=== PATIENT | female | born 1965 | race Native Hawaiian/Other Pacific Islander ===

== ENCOUNTER 2024-10-17 09:57 | Outpatient (AMB) | payer OTHER, SELFPAY ==
[2024-10-17 10:13] VITALS: BP 112/78; PULSE 70; O2SAT 98; BMI 36.8
--- NOTE | 2024-10-17 10:13 | A.OFFVIS_ITS ---
Vital Signs 10/17/24 10:13 Height 5 ft Weight 188 lb 7.924 oz BMI 36.8 BP 112/78 Blood Pressure Location Lt brachial Position Sitting Pulse 70 Pulse Source Pulse Oximeter Pulse Oximetry (%) 98 Oxygen Delivery Method Room Air Intake Visit Reasons: amdyson Intake Note: pt is coming here as a new patient for sleep apnea. all sleep studies were done years ago,and she has trouble with anything on her face.She does have daytime fatigue, breathing is poor when sleeping. She does sleep with her mouth open. breathing is stable Mica Washer Gluer Required: No Allergies Penicillins Allergy (Severe, Verified 10/17/24 10:30) Rash tramadol Allergy (Severe, Verified 10/17/24 10:30) rash Medication List - Last Reconciled 10/17/24 by Irais Enamorado MD albuterol sulfate 90 mcg/actuation 2 puffs inhalation Q6H PRN amlodipine 5 mg PO DAILY benzonatate 200 mg PO BID PRN fluticasone propion-salmeterol 115-21 mcg/actuation (Advair HFA) 2 puffs inhalation BID galcanezumab-gnlm (Emgality) mg subcut hydrochlorothiazide 25 mg PO DAILY omeprazole 20 mg PO DAILY ubrogepant (Ubrelvy) 100 mg PO ONCE Do you need a note to return to daycare/school/sports/work: No HPI HPI madyson: Details: THIS 59 YEARS OLD FEMALE IS BEING SEEN FOR THE 1ST TIME, FOR HER HISTORY OF SLEEP APNEA AND ALSO DIFFICULTY IN SLEEP AT NIGHT. HER SYMPTOMS DATE BACK TO A FEW YEARS BEFORE 2017. SHE HAD DIFFICULTY IN FALLING ASLEEP AND THEN FREQUENT AWAKENING DURING THE SLEEP TIME, RESULTING IN EXCESSIVE DAYTIME SLEEPINESS. UNDERWENT SLEEP STUDY IN 2018 WHICH CONFIRMED THE DIAGNOSIS OF OBSTRUCTIVE SLEEP APNEA. SHE WAS STARTED ON CPAP THERAPY WITH NASAL PILLOWS. SHE HAS HISTORY OF CLAUSTROPHOBIA AND COULD NOT USE FULLFACE MASK. SHE WAS UNABLE TO USE EVEN THE NASAL PILLOWS, AND AFTER TRYING FOR A MONTH OR SO SHE ACTUALLY GAVE UP, USING CPAP. SHE CONTINUES TO HAVE POOR SLEEP AT NIGHT WITH FREQUENT AWAKENINGS. AND AFTER 1 OR 2 AWAKENINGS SHE CAN NOT GO BACK. TO SLEEP SHE COMPLAINS OF BEING TIRED AND SLEEPY DURING THE DAYTIME . SHE DOES SNORE WHEN SLEEPING . IN 2019 SHE HAD COVID INFECTION, FROM WHICH SHE RECOVERED QUICKLY, BUT A FEW MONTHS LATER SHE WAS TREATED FOR PNEUMONIA. AT THAT TIME SHE NEEDED TO USE O2, SHE WAS TREATED AT HOME , ADVISED TO USE HER CPAP DURING THE DAYTIME ALONG WITH OXYGEN. DURING THE DAYTIME SHE WAS ABLE TO USE THE CPAP WITH NASAL PILLOWS. BUT AT NIGHTTIME SHE CAN NOT USE THE CPAP. SHE HAD RECOVERED FROM PNEUMONIA AND RESPIRATORY INSUFFICIENCY WITHIN A FEW MONTHS. AT THAT TIME SHE WAS TREATED WITH ADVAIR HFA AND ALBUTEROL P.R.N., AFTER SHE RECOVERED SHE HAS NEEDED TO USE ALBUTEROL ONLY ONCE IN A WHILE. SHE COMES TODAY, FOR RE-EVALUATION., HAS SHE CONTINUES TO HAVE DIFFICULT TIME IN SLEEPING AT NIGHT AND IS TIRED AND SLEEPY DURING THE DAYTIME. HER WEIGHT HAS REMAINED UNCHANGED AND SHE HAS NOT BEEN ABLE TO LOSE MUCH WEIGHT/ SHE SUFFERS FROM MIGRAINE SYNDROME AND IT IS BEING CONTROLLED WITH EMGALITY INJECTION ONCE A MONTH AND Ubrelvy tabs PRN at the onset of migraine attack. [facility] Medical History (Updated 10/17/24 @ 13:45 by Irais Enamorado MD) Snoring History of claustrophobia COPD (chronic obstructive pulmonary disease) Somnolence MADYSON (obstructive sleep apnea) Obesity (BMI 30-39.9) Social History (Updated 10/17/24 @ 10:27 by Nini Alvares [facility]) Patient Tobacco Use Status: Never used Tobacco Review of Systems Const All systems reviewed & are unremarkable except as noted in HPI and below Reports snoring Eyes Reports no additional complaints ENT Reports nasal congestion (MILD OFF AND ON) Card Denies chest pain, Denies syncope, Denies irregular heart rhythm, Denies leg edema and Reports dyspnea on exertion (MILD) Resp Reports as per HPI, Reports dyspnea on exertion (MILD) and Reports snoring GI Details: MODERATELY EXCESSIVE WHEN SLEEPING Reports no additional complaints Skin/Breast Reports system reviewed and no additional complaints, except as documented Neuro Denies syncope and Reports other (MIGRAINE SYNDROME) Psych Reports no additional complaints Endo Reports no additional complaints Ramón/Lymph Reports no additional complaints Physical Exam Vital Signs: Last Vital Signs Pulse 70 10/17/24 10:13 BP 112/78 10/17/24 10:13 Pulse Ox 98 10/17/24 10:13 Oxygen Delivery Method Room Air 10/17/24 10:13 BMI result Body Mass Index 36.8 GROSSLY OBESE, ROUND FACE. SHORT NECK 15-1/2 INCH. Const General: healthy appearing (EXCEPT FOR BEING OBESE), comfortable, no acute distress, alert and awake Orientation/consciousness: patient oriented x3 HEENT Head: Yes normal to inspection General nose exam: No nasal polyps present and No nasal discharge present Face and sinus: Yes sinuses nontender Mouth: oropharynx abnormals (NARROW AND CROWDED OROPHARYNX WITH MALLAMPATI CLASS 3) Throat: Yes posterior oropharynx normal Eyes General: appearance normal, both eyes and all related structures Neck Neck: Yes normal visual inspection, Yes no lymphadenopathy, Yes trachea midline, Yes no JVD and Yes other (NECK CIRCUMFERENCE 15-1/2 INCH) Thyroid: Thyroid normal Chest Chest palpation & inspection: normal inspection of the chest, normal palpation of entire chest wall and no tenderness Resp Effort & Inspection: normal respiratory effort and prolonged expiratory phase Auscultation: clear to auscultation bilaterally, no crackles, no wheezes and diminished lung sounds (BREATH SOUNDS ARE MODERATELY DISTANT) Cardio Palpation: normal PMI Rate: regular rate Rhythm: regular rhythm Heart sounds: no gallops and no murmurs Peripheral pulses: Peripheral pulses 2+ throughout GI Palpation (GI): Soft to palpation, Tenderness to palpation present (GI), No hepatosplenomegaly present and Palpable mass present Auscultation: normal bowel sounds Back/Spine/Pelvis Thoracic/Lumbar Spine: thoracic and lumbar spine normal to inspection Skin General skin exam: no rashes or lesions noted Neuro General: patient oriented x3 and no focal motor deficits Cranial nerves: Yes CN's II-XII intact bilaterally Extrem General: Yes normal to inspection, Yes no clubbing, cyanosis or edema and Yes no calf tenderness Psych Speech and movement: Normal speech and movement present Assessment & Plan Assessment & Plan (1) Obesity (BMI 30-39.9): Comment: PATIENT IS GROSSLY OBESE, ASSOCIATED WITH OBSTRUCTIVE SLEEP APNEA ,WEIGHT HAS BEEN UNCHANGED. Code(s): E66.9 - Obesity, unspecified Category: Medical Plan: DISCUSSED WITH HER ABOUT THE WEIGHT, SHE NEEDS TO WATCH HER DIET AND START WALKING DAILY. (2) MADYSON (obstructive sleep apnea): Comment: SHE HAS HISTORY OF CONFIRMED DIAGNOSIS OF OBSTRUCTIVE SLEEP APNEA, SINCE 2018. SHE WAS NOT ABLE TO USE THE CPAP DUE TO CLAUSTROPHOBIA. BUT WHEN SHE HAD PNEUMONIA WITH RESPIRATORY INSUFFICIENCY, CAUSE BY COVID INFECTION SHE WAS ABLE TO USE CPAP DURING THE DAYTIME WHILE AWAKE. BECAUSE SHE IS HAVING VERY POOR SLEEP SHE WANTS TO TRY USING THE CPAP AGAIN. Code(s): G47.33 - Obstructive sleep apnea (adult) (pediatric) Category: Medical Plan: WILL NEED TO RECONFIRM THE DIAGNOSIS BY A REPEAT SLEEP STUDY. SHE IS AGREEABLE. SO I HAVE PUT ORDER FOR A HOME-BASED SLEEP STUDY. (3) Somnolence: Comment: SHE HAS VERY POOR SLEEP AT NIGHT PARTLY BECAUSE OF SLEEP APNEA AND PARTLY DUE TO HER UNDERLYING MENTAL HEALTH ISSUES. Code(s): R40.0 - Somnolence Category: Medical Plan: I THINK THIS WILL IMPROVE AFTER SHE STARTS USING THE CPAP REGULARLY (4) COPD (chronic obstructive pulmonary disease): Comment: SHE HAS CHRONIC OBSTRUCTIVE PULMONARY DISEASE DIAGNOSED SINCE SHE SUFFERED FROM COVID INFECTION . Code(s): J44.9 - Chronic obstructive pulmonary disease, unspecified Category: Medical Plan: CONTINUE USING ADVAIR HFA 115-212 PUFFS B.I.D. AND USE ALBUTEROL 2 PUFFS Q 6 HOURS P.R.N. WE WILL NEED TO DO A COMPLETE PULMONARY FUNCTION TEST TO SEE HOW SEVERE HER COPD IS. . THIS WILL BE UNDERTAKEN AFTER HER NEXT VISIT (5) History of claustrophobia: Comment: PATIENT COULD NOT USE THE CPAP AFTER HER SLEEP STUDY IN 2018, BECAUSE SHE HAS CLAUSTROPHOBIA AND COULD NOT EVEN USE THE NASAL MASK. BUT WHEN SHE SUFFERED FROM COVID INFECTION AND RESPIRATORY INSUFFICIENCY SHE DID USE THE CPAP DURING DAYTIME AND IT WAS OKAY. Code(s): Z86.59 - Personal history of other mental and behavioral disorders Category: Medical Plan: AFTER THE SLEEP STUDY IF SHE IS FOUND TO HAVE SLEEP APNEA AND NEEDS USE OF CPAP, SHE WILL NEED TO TRAIN HERSELF TO START USING THE CPAP. I WILL RECOMMEND THAT INITIALLY SHE COULD TRY TO USE CPAP EVEN DURING THE DA YTIME WHEN SHE IS AWAKE, SO THAT SHE. CAN GET USED TO IT Orders: Orders RT home sleep study Today E66.9 - Obesity, unspecified, G47.33 - Obstructive sleep apnea (adult) (pediatric), R06.83 - Snoring, R40.0 - Somnolence Coding Level of Care Code New Pt Level 4 (77505) Diagnoses Obesity (BMI 30-39.9) E66.9 MADYSON (obstructive sleep apnea) G47.33 Somnolence R40.0 COPD (chronic obstructive pulmonary disease) J44.9 History of claustrophobia Z86.59
--- OUTSIDE RECORDS SUMMARY | 2024-10-17 11:05 | XMS_ITS | Clinical Summary ---
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 Active triamcinolone (KENALOG) 0.1 % ointment Apply a thin layer to the affected area nightly x4 weeks 3 Active cetirizine (ZyrTEC) 10 mg tablet 1 Active ketotifen (ZADITOR) 0.025 % ophthalmic solution 1 Active fluticasone propionate (FLONASE) 50 mcg/actuation nasal spray 1-2 sprays in each nostril daily as needed 9 Active busPIRone (BUSPAR) 5 mg tablet Take 1 Tablet by mouth 3 times daily as needed (Anxiety). 4 Active sodium chloride (AYR) 0.65 % nasal drops 1 [place] by Nasal route 3 times daily as needed for Congestion. 4 Active galcanezumab-gnl m (Emgality Pen) 120 mg/mL injection pen Inject 1 mL (120 mg total) under the skin every 28 (twenty-eight) days. 1 each 5 4 Active omeprazole (PriLOSEC) [address] capsule TAKE 1 CAPSULE BY MOUTH 2 TIMES DAILY (BEFORE MEALS) 180 capsule 1 5 Active albuterol HFA (PROAIR HFA ; PROVENTIL HFA ; VENTOLIN HFA) 90 mcg/actuation inhaler Inhale 2 puffs by mouth every 4 (four) hours if needed for wheezing. 6.7 g 3 5 Active amLODIPine (NORVASC) 5 mg tablet TAKE 1 TABLET BY MOUTH EVERY DAY 90 tablet 1 5 Active hydroCHLOROthiaz felix (HYDRODIURIL) 25 mg tablet Take 1 tablet (25 mg total) by mouth 1 (one) time each day. 90 tablet 1 5 Active meclizine (ANTIVERT) 12.5 mg tablet Take 1 tablet (12.5 mg total) by mouth 3 (three) times a day if needed for dizziness. 60 tablet 1 5 Active potassium chloride (KLOR-CON M10) 10 mEq CR tablet Take 1 tablet (10 mEq total) by mouth 1 (one) time each day. Tablet may be swallowed whole (do not crush/chew/suck on) OR broken in half and each half swallowed separately OR dissolved (whole tablet) in ~4 ounces of water (allow ~2 minutes to dissolve, stir well and administer immediately). 90 each 1 5 Active Ubrelvy 100 mg tabletIndication s:Chronic migraine with aura without status migrainosus, not intractable 1 p.o. at onset of migraine. May repeat once after 2 hours. Maximum dose: 200 mg/24 hrs 9 tablet 2 5 Active Hospital, Clinic, or Other Facility Administered Medication Ordered Dose Route Frequency Start Date End Date Status onabotulinumtoxinA (BOTOX) 200 unit injection 200 UnitsIndications:Chronic migraine with aura without status migrainosus, not intractable 200 Units IM Once 10/04/2024 10/04/2024 Ended Active Problems Problem Noted Date Diagnosed Date Mild intermittent asthma without complication Mixed hyperlipidemia 06/21/2023 Pelvic pain 02/09/2023 Overview (03/24/2024): Last Assessment & Plan: Discussed potential causes of pelvic pain with the patient including infections (unlikely given abstinent and no other symptoms of infection), ovarian cysts, interstitial cystitis, irritable bowel, and MSK etiologies. Pelvic US ordered Vulvar lesion 02/09/2023 Overview (03/24/2024): Last Assessment & Plan: Rx kenolog refilled, patient instructed to apply a thin layer twice daily. RTO for biopsy. Procedure described and all questions answered. Prediabetes 02/06/2022 Overview (03/24/2024): A1c 5.8 (01/2022) Impaired fasting blood sugar 11/14/2021 Elevated blood pressure reading 2021 Overview (03/24/2024): Last Assessment & Plan: Blood pressure elevated x2 today. Patient was instructed to follow-up with primary care physician. Hot flashes due to menopause 2021 Overview (03/24/2024): Last Assessment & Plan: Briefly discussed alternative treatment options for menopausal hot flashes, however as patient's symptoms are mild at this time the decision was made to proceed with expectant management. Lichen simplex chronicus 2021 Overview (03/24/2024): Last Assessment & Plan: Patient's symptoms have resolved. She declines exam today. Will return if symptoms recur. COVID-19 06/24/2020 Microscopic hematuria 08/11/2019 Overview (03/24/2024): Per patient: in the past was told had blood in her urine, doesn't see any blood herself. She was referred to urology and seen by them by them over 5 years ago and was told everything was fine. Nodule of left lung 02/28/2019 Essential (primary) hypertension 10/05/2017 Vitamin D deficiency 06/15/2017 Low back pain 05/11/2017 Anxiety and depression 04/06/2017 Hypercholesterolemia 04/06/2017 Allergic rhinitis 10/15/2016 Migraine without status migrainosus, not intract able 10/15/2016 Acne 07/30/2015 Insomnia 08/14/2014 Esophageal reflux 06/07/2013 MADYSON on CPAP 11/02/2011 Overview (03/24/2024): [facility] Polysomnogram: Date 07/26/2019; Wt 174#; BMI 33; SE 88%; SM 89%; REM 22%; RDI 16 (AHI 10), REM (RDI 27 - AHI 23), Central apneas 4; Obstructive apneas 9; Mixed apneas 0; hypopneas 61; RERAs 46; average oxygen saturation 96% (lowest 86% - without saturations <88% for 5% or more of study); PLMs 3. Prestudy ESS 2; 0/4 RLS symptoms. - Obstructive Sleep Apnea - Mild overall and moderate in REM; mostly hypopneas; without sleep related hypoventilation by 2019 polysomnogram. Encounters Date Type Department Care Team Description 10/04/2024 10:00 AM EDT Procedure visit [facility] [place] [address] [place] [phone] Shena Willis MD Chronic migraine with aura without status migrainosus, not intractable (Primary Dx) 10/03/2024 10:00 AM EDT Evaluation [facility] [place] [address] [place] [phone] Ashok Lazo, PT Benign paroxysmal positional vertigo, unspecified laterality 09/19/2024 10:00 AM EDT - 09/19/2024 11:59 PM EDT Hospital Encounter Radiology Department - [address] [phone] Benign paroxysmal positional vertigo, unspecified laterality; Dizziness; Migraine without aura and without status migrainosus, not intractable Discharge Disposition: Home or Self Care 09/04/2024 10:30 AM EDT Lab Draw Station - [address] [place] [address] Essential (primary) hypertension; Mixed hyperlipidemia; Prediabetes; Gastroesophageal reflux disease without esophagitis; Mild intermittent asthma without complication; Migraine without aura and without status migrainosus, not intractable; MADYSON on CPAP; Allergic rhinitis, unspecified seasonality, unspecified trigger; Hypokalemia 09/04/2024 9:30 AM EDT Office Visit Adult Medicine [address] [phone] Alcides King MD Benign paroxysmal positional vertigo, unspecified laterality (Primary Dx); Dizziness; Allergic rhinitis, unspecified seasonality, unspecified trigger; Migraine without aura and without status migrainosus, not intractable; Hypokalemia; Essential (primary) hypertension 09/01/2024 Telephone Adult Medicine [address] [phone] Alcides King MD Dizziness 08/30/2024 Telephone Adult [address] [phone] Alcides King MD Dizziness 07/28/2024 8:30 AM EST Office Visit Adult [address] [phone] Alcides King MD Essential (primary) hypertension (Primary Dx); Mixed hyperlipidemia; Prediabetes; Gastroesophageal reflux disease without esophagitis; Mild intermittent asthma without complication; MADYSON on CPAP; Allergic rhinitis, unspecified seasonality, unspecified trigger; Migraine without aura and without status migrainosus, not intractable from Last 3 Months Immunizations Name Administration Dates Next Due Hepatitis B Pediatric (Enger ix B; Recombivax HB) to less than 20 yo 03/17/2010,01/30/2010,12/17/2009 Influenza Quadravalent, MDCK , 0.5ml, preservative free (Flucelvax) 6mo and older 03/14/2021,05/08/2019,06/28/2018 Influenza trivalent, 0.5mL, preservative free (Fluarix; FluLaval; Fluzone) ages 6mo and older (Afluria) 3 years and older 02/24/2016,03/18/2015,06/06/2012,2010,03/17/2010 Influenza trivalent, with preservative (Fluzone; Afluria) 6mo and older 04/06/2017,06/15/2013 Influenza, Unspecified 03/14/2021 [employer] SARS-CoV-2 COVID -19, vector-nr, rS-Ad26, preservative free 09/05/2020 MMR, measles mumps and rubel la Live (Priorix; M-M-R II) 12mo and older 06/15/2013 [employer] SARS-CoV-2 COVID-19, mRNA, LNP-S, preservative free 05/29/2021 Tdap Tetanus diptheria acell ular pertussis (Boostrix; Adacel) 7yo and older 11/14/2021,10/01/2011 Zoster recombinant (Shingrix ) 19yo and older 07/29/2022,05/25/2022 Surgical History Surgery Date Site/Laterality Comments ENDOMETRIAL ABLATION PROCEDURE: MA ENDOMETRIAL ABLTJ THERMAL W/O HYSTEROSCOPIC GUID; COMMENT: Early 40s TUBAL LIGATION PROCEDURE: HISTORICAL TUBAL LIGATION OTHER SURGICAL HISTORY Left PROCEDURE: ---- OTHER ----; COMMENT: removal of extra breast CYST REMOVAL PROCEDURE: MA EXCISION PILONIDAL CYST/SINUS SIMPLE BREAST SURGERY 1982 Left PROCEDURE: MA UNLISTED PROCEDURE BREAST; COMMENT: extra nipple removed lt breast age 16 Medical History Medical History Date Comments Acne 07/30/2015 DX:Acne Allergic rhinitis 10/15/2016 DX:Allergic rh initis Depression with anxiety 04/06/2017 DX:Depre ssion with anxiety Esophageal reflux 06/07/2013 DX:Esophageal reflux Migraine 10/15/2016 DX:Migraine Hypercholesterolemia 04/06/2017 DX:Hypercho lesterolemia Hypertension 10/05/2017 DX:Hypertension Insomnia 08/14/2014 DX:Insomnia Low back pain 05/11/2017 DX:Low back pain Obstructive sleep apnea 11/02/2011 DX:Obstr uctive sleep apnea Vitamin D deficiency 06/15/2017 DX:Vitamin D deficiency Prediabetes 02/06/2022 DX:Prediabetes; COMMENT: A1c 5.8 (01/2022) Family History Medical History Relation Name Comments Other cancer Brother 1 sarcoma COPD Brother 2 Diabetes Father ESRD Maternal Grandmother Hypertension Mother copd,arhtritis Other: pulmonary embolus Sister 1 Other: lupus Sister 2 esrd Diabetes Sister 3 Rheum arthritis Sister 4 Breast cancer Neg Hx Colon cancer Neg Hx Relation Name Status Comments Brother 1 Brother 2 Alive Father Alive Maternal Grandfather Maternal Grandmother Mother Paternal Grandfather Paternal Grandmother Sister 1 Sister 2 Sister 3 Alive Sister 4 Alive Sister 5 Alive Social History Tobacco Use Types Packs/Day Years Used Date Smoking Tobacco: Never Smokeless Tobacco: Never Tobacco Cessation:Counseling Given: Not Answered Alcohol Use Standard Drinks/Week Comments Yes 0 (1 standard drink = 0.6 oz pur e alcohol) Comments Unknown Sex and Gender Information Value Date Recorded Sex Assigned at Female 09/11/2024 1:54 PM EDT Legal Sex Female 2:00 AM EST Gender Identity Female 09/11/2024 1:54 PM EDT Sexual Orientation Straight 09/11/2024 1: 54 PM EDT Obstetrics History Last Filed Vital Signs Vital Sign Reading Time Taken Comments Blood Pressure 118/78 09/04/2024 9:20 AM EDT Pulse 77 09/04/2024 9:20 AM EDT Temperature 36.6 ??C (97.8 ??F) 09/04/2024 9:20 AM ED T Respiratory Rate 16 09/04/2024 9:20 AM EDT Oxygen Saturation 98% 07/28/2024 8:36 AM EST Inhaled Oxygen Concentration - - Weight 84.4 kg (186 lb) 09/04/2024 9:20 AM EDT Height 152.4 cm (5') 09/04/2024 9:20 AM EDT Body Mass Index 36.33 09/04/2024 9:20 AM EDT Plan of Treatment Upcoming Encounters Date Type Department Care Team ([facility] st Contact Info) Description 10/24/2024 10:20 AM EDT Appointment Radiology Department [address] [phone] 12/11/2024 8:00 AM EDT Office Visit [facility] [address] [place] [phone] Shena Willis MD [address] [phone] 12/27/2024 10:00 AM EDT Procedure visit [facility] [address] [place] [phone] Shena Willis MD [address] [phone] 01/25/2025 11:30 AM EDT Office Visit Adult Medicine [address] [phone] Alcides King MD [address] [place] [id number] Health Maintenance Due Date Last Done Comments Hepatitis B Vaccines (1 of 3 - 19+ 3-dose series) 1984 03/17/2010, 01/30/2010, 12/17/2009 Pneumococcal Vaccine: 50+ Years (1 of 2 - PCV) 1984 Pneumococcal Vaccine: Pediatrics (0 to 5 Years) and At-Risk Patients (6 to 64 Years) (1 of 2 - PCV) 1984 Depression Screening 05/09/2022 HIV Screening 05/09/2022 Medicare Annual Wellness Visit 05/09/2022 Social Influencers of Health Screening 05/09/2022 Hypertension/CHF/CAD Annual BMP Blood Test 09/04/2025 09/04/2024, 11/22/2023, 11/22/2023 Breast Cancer Screening 10/10/2025 10/11/19, 10/11/2023, 09/29/2022, Additional history exists Cervical Cancer Screening: HPV 2026 2021 Colorectal Cancer Screening: Colonoscopy 03/21/2029 03/21/2019 Cholesterol Screening (Lipid Panel) 09/04/2029 09/04/2024, 07/22/2023 DTaP,Tdap,and Td Vaccines (3 - Td or Tdap) 11/15/2031 11/14/2021, 10/01/2011 RSV Immunization Adult Patients (1 - 1-dose 75+ series) 2040 MMR Vaccines Aged Out 06/15/2013 No longer eligi ble based on patient's age to complete this topic Hepatitis C Screening Completed 12/28/2018 Zoster Vaccines Completed 07/29/2022, 020 11/2022, 05/25/2022, Additional history exists COVID-19 Vaccine Completed 02/23/2024, , 02/04/2022, Additional history exists Influenza Vaccine Completed 02/23/2024, , 02/04/2022, Additional history exists HIB Vaccines Aged Out No longer eligi ble based on patient's age to complete this topic HPV Vaccines Aged Out No longer eligi ble based on patient's age to complete this topic Hepatitis A Vaccines Aged Out No long er eligible based on patient's age to complete this topic IPV Vaccines Aged Out No longer eligi ble based on patient's age to complete this topic Meningococcal ACWY Vaccine Aged Out N o longer eligible based on patient's age to complete this topic Meningococcal B Vaccine Aged Out No l onger eligible based on patient's age to complete this topic RSV Immunization Patients Under 20 months Aged Out No longer eligible based on patient's age to complete this topic Varicella Vaccines Aged Out No longer eligible based on patient's age to complete this topic Procedures Procedure Name Priority Date/Time Associated Diagnosis Comments MR BRAIN WO CONTRAST Routine 09/19/2024 11:09 AM EDT Benign paroxysmal positional vertigo, unspecified laterality Dizziness Migraine without aura and without status migrainosus, not intractable MAGNESIUM Routine 09/04/2024 10:45 AM EDT Hypokalemia Essential (primary) hypertension LIPID PANEL WITH REFLEX TO DIRECT LDL Routine 09/04/2024 10:45 AM EDT Essential (primary) hypertension Mixed hyperlipidemia Prediabetes Gastroesophageal reflux disease without esophagitis Mild intermittent asthma without complication Migraine without aura and without status migrainosus, not intractable MADYSON on CPAP Allergic rhinitis, unspecified seasonality, unspecified trigger BASIC METABOLIC PANEL Routine 09/04/2024 10:45 AM EDT Essential (primary) hypertension Mixed hyperlipidemia Prediabetes Gastroesophageal reflux disease without esophagitis Mild intermittent asthma without complication Migraine without aura and without status migrainosus, not intractable MADYSON on CPAP Allergic rhinitis, unspecified seasonality, unspecified trigger HEMOGLOBIN A1C Routine 09/04/2024 10:45 AM EDT Essential (primary) hypertension Mixed hyperlipidemia Prediabetes Gastroesophageal reflux disease without esophagitis Mild intermittent asthma without complication Migraine without aura and without status migrainosus, not intractable MADYSON on CPAP Allergic rhinitis, unspecified seasonality, unspecified trigger SCREENING MAMMOGRAPHY BI 2-VIEW BREAST INC CAD Routine 10/11/2023 10:38 AM EDT Encounter for screening mammogram for malignant neoplasm of breast HM HPV Routine 2021 HM COLONOSCOPY Routine 03/21/2019 HEPATITIS C SCREENING Routine 12/28/2018 from Last 3 Months or Most Recently Relevant to Health Maintenance Results * MR Brain wo Contrast (09/19/2024 11:09 AM EDT) Anatomical Region Laterality Modality Head and Neck Magnetic Resonan ce 09/19/2024 7:21 PM EDT Narrative 09/19/2024 7:27 PM EDT MRI of the head without intravenous contrast. History chronic headaches. Examination was performed on 1.5 Larisa magnet without administration of intravenous contrast. No previous studies are available for comparison. There is no evidence of midline shift, extra or intra-axial blood fluid collections. There is no visible masses or mass effect in the brain and cerebellum. There is no evidence of territorial infarctions, focal areas of restricted diffusion or magnetic susceptibility artifact there are a few nonspecific foci of mildly increased FLAIR signal in the periventricular white matter mostly along the frontal horns of the lateral ventricles. There are a few nonspecific tiny foci in the subcortical and deep white matter in the supratentorial brain. Ventricular system is symmetric and normal in size. Fourth ventricle and basal cisterns are midline and patent. Paranasal sinuses and mastoid processes are aerated. CONCLUSIONS: Nonspecific mild white matter signal abnormalities in the supratentorial white matter of both cerebral hemispheres most likely due to mild chronic small vessel ischemia. Differential diagnosis should include infectious/inflammatory etiology vasculitis, migraine among the other possibilities. -------- FINAL REPORT -------- Dictated By: Sendy Hardin Dictated Date: 09/19/2024 19:21 ET Assigned Physician: Sendy Hardin Reviewed and Electronically Signed By: Sendy Hardin Signed Date: 09/19/2024 19:27 ET Workstation ID: [id number] Transcribed By: Self Edit Transcribed Date: 09/19/2024 19:21 ET Procedure Note Sendy Hardin MD - 09/19/2024 MRI of the head without intravenous contrast. History chronic headaches. Examination was performed on 1.5 Larisa magnetwithout administration of intravenous contrast. No previous studies areavailable for comparison. There is no evidence of midline shift, extra or intra-axial blood fluidcollections. There is no visible masses or mass effect in the brain andcerebellum. There is no evidence of territorial infarctions, focal areasof restricted diffusion or magnetic susceptibility artifact there are afew nonspecific foci of mildly increased FLAIR signal in theperiventricular white matter mostly along the frontal horns of the lateralventricles. There are a few nonspecific tiny foci in the subcortical anddeep white matter in the supratentorial brain. Ventricular system is symmetric and normal in size. Fourth ventricle andbasal cisterns are midline and patent. Paranasal sinuses and mastoid processes are aerated. CONCLUSIONS: Nonspecific mild white matter signal abnormalities in thesupratentorial white matter of both cerebral hemispheres most likely dueto mild chronic small vessel ischemia. Differential diagnosis shouldinclude infectious/inflammatory etiology vasculitis, migraine among theother possibilities. -------- FINAL REPORT -------- Dictated By: Sendy Hardin Dictated Date: 09/19/2024 19:21 ET Assigned Physician: Sendy Hardin Reviewed and Electronically Signed By: Sendy Hardin Signed Date: 09/19/2024 19:27 ET Workstation ID: [id number] Transcribed By: Self Edit Transcribed Date: 09/19/2024 19:21 ET Alcides King MD IMG MRI PROCEDURES Final Re sult * (ABNORMAL) Lipid panel with reflex to direct LDL (09/04/2024 10:45 AM EDT) Cholesterol 237(H) 0 - 200 mg/dL LAB CHEMISTRY METHOD 09/04/2024 1:40 PM EDT [facility] Triglycerides 107 0 - 150 mg/dL LAB CHEMISTRY METHOD 09/04/2024 1:40 PM EDT [facility] HDL 49 >=40 mg/dL LAB CHEMISTRY METHOD 09/04/2024 1:40 PM EDT [facility] LDL Calculated 167(H) 0 - 100 mg/dL LAB CHEMISTRY METHOD 09/04/2024 1:40 PM EDT [facility] VLDL Cholesterol Curt 21.4 mg/dL LAB CHEMISTRY METHOD 09/04/2024 1:40 PM EDT [facility] Non HDL Chol. (LDL+VLDL) 188(H) <145 mg/dL LAB CHEMISTRY METHOD 09/04/2024 1:40 PM EDT [facility] Chol/HDL Ratio 4.8(H) 0.0 - 4.4 LAB CHEMISTRY METHOD 09/04/2024 1:40 PM EDT [facility] Blood Venous blood specimen / Unknown Venipuncture / Unknown 09/04/2024 10:45 AM EDT 09/04/2024 11:39 AM EDT Alcides King MD LAB BLOOD ORDERABLES Final Result [facility] [address] [place] [address], [place] [phone] * Magnesium (09/04/2024 10:45 AM EDT) Magnesium 2.2 1.9 - 2.6 mg/dL LAB CHEMISTRY METHOD 09/04/2024 1:26 PM EDT [facility] Blood Venous blood specimen / Unknown Venipuncture / Unknown 09/04/2024 10:45 AM EDT 09/04/2024 11:39 AM EDT Alcides King MD LAB BLOOD ORDERABLES Final Result [facility] [address] [place] [address], [place] [phone] * Hemoglobin A1c (09/04/2024 10:45 AM EDT) [facility] Hemoglobin A1C 5.9 <6.5 % LAB CHEMISTRY METHOD 09/05/2024 10:14 AM EDT [facility] Mean Bld Glu Estim. 123 mg/dL LAB CHEMISTRY METHOD 09/05/2024 10:14 AM EDT [facility] Blood Venous blood specimen / Unknown Venipuncture / Unknown 09/04/2024 10:45 AM EDT 09/04/2024 11:42 AM EDT Alcides King MD LAB BLOOD ORDERABLES Final Result [facility] [address] [place] [address], [place] [phone] * Basic metabolic panel (09/04/2024 10:45 AM EDT) Pathologist [facility] Sodium 138 133 - 145 mmol/L LAB CHEMISTRY METHOD 09/04/2024 1:26 PM EDT [facility] Potassium 3.5 3.5 - 5.5 mmol/L LAB CHEMISTRY METHOD 09/04/2024 1:26 PM [facility] Chloride 101 96 - 110 mmol/L LAB CHEMISTRY METHOD 09/04/2024 1:26 PM [facility] CO2 29 21 - 32 mmol/L LAB CHEMISTRY METHOD 09/04/2024 1:26 PM [facility] Anion Gap 8 3 - 11 LAB CHEMISTRY METHOD 09/04/2024 1:26 PM [facility] Glucose 95 70 - 100 mg/dL LAB CHEMISTRY METHOD 09/04/2024 1:26 PM [facility] BUN 14 5 - 25 mg/dL LAB CHEMISTRY METHOD 09/04/2024 1:26 PM [facility] Creatinine 0.88 0.50 - 1.10 mg/dL LAB CHEMISTRY METHOD 09/04/2024 1:26 PM [facility] eGFR 76 >=60 mL/min/1. 73m2 LAB CHEMISTRY METHOD 09/04/2024 1:26 PM [facility] Comment:Calculation based on the??Chronic Kidney Disease Epidemiology Collaboration (CKD-EPI) equation refit??without adjustment for race. BUN/Creatinine Ratio 15.9 LAB CHEMISTRY METHOD 09/04/2024 1:26 PM [facility] Calcium 9.3 8.5 - 10.5 mg/dL LAB CHEMISTRY METHOD 09/04/2024 1:26 PM [facility] Blood Venous blood specimen / Unknown Venipuncture / Unknown 09/04/2024 10:45 AM EDT 09/04/2024 11:39 AM EDT Alcides King MD LAB BLOOD ORDERABLES Final Result [facility] [address] [place] [address], * SCREENING MAMMOGRAPHY BI 2-VIEW BREAST INC CAD (10/11/2023 10:38 AM EDT) Anatomical Region Laterality Modality Radiographic Cyndy ging 09/29/2022 11:0 8 AM EDT Narrative 10/11/2023 12:41 PM EDT This is a summary report. The complete report is available in the patient's medical record. If you cannot access the medical record, please contact the sending organization for a detailed fax or copy. Full field digital screening tomosynthesis mammography, reviewed with CAD and compared to previous. The breasts are composed of fatty and fibroglandular tissue. ??No suspicious mass, architectural distortion or suspicious calcifications are identified. IMPRESSION: : No mammographic evidence of malignancy. BIRADS 1-Negative; N. 5 year breast cancer risk assessment 0.7 % Lifetime breast cancer risk assessment 4.3 % Breast cancer risk category Low (<15%) Procedure Note Isra Monsivais MD - 01/17/2024 This is a summary report. The complete report is available in thepatient's medical record. If you cannot access the medical record, pleasecontact the sending organization for a detailed fax or copy. Full field digital screening tomosynthesis mammography, reviewed with CADand compared to previous. The breasts are composed of fatty andfibroglandular tissue. No suspicious mass, architectural distortion orsuspicious calcifications are identified. IMPRESSION: : No mammographic evidence of malignancy. BIRADS 1-Negative; N. 5 year breast cancer risk assessment 0.7 % Lifetime breast cancer risk assessment 4.3 % Breast cancer risk category Low (<15%) Alcides King MD IMG XR PROCEDURES Final Res ult * Cervical Cancer Screening: HPV (2021) Cervical Cancer Screening: HPV negative, abstracted Historical Provider [facility] Final Result * Colonoscopy (03/21/2019) Pathologist [facility] Colonoscopy no interpretation , abstracted Anatomical Region Laterality Modality Other Historical Provider [facility] Final Result * Hepatitis C Screening (12/28/2018) Pathologist [facility] Hepatitis C Screening abstracted us Historical Provider [facility] Final Result from Last 3 Months or Most Recently Relevant to Health Maintenance Insurance ERNEST[place] LINDQUIST [id number] [employer] MEDICARE Member Subscriber Plan / Payer (Ef fective 2018-Present) Name:Joseph Leone Relation to Subscriber:Self Name:Joseph Leone Payer ID:[id number] Group ID:[id number] Type:Not on file Address: [place] [address] [address] [id number] Care Teams Farm Mechanic Apprentice Relationship Specialty Start Date End Date Alcides King MD [address] [place] [address] [place] PCP - General Internal Medicine 11/11/21
--- OUTSIDE RECORDS SUMMARY | 2024-10-17 11:05 | XMS_ITS | Encounter Summary ---
Author Organization [facility] Address [address] [place] [address] Care Team Providers Care Knot Tying Operator Name Role Phone Alcides King MD Primary Care Provider [phone] Encounter Details Date Type Department Care Team ([facility] st Contact Info) Description 03/23/2024 8:40 AM EDT Hospital Encounter TH HISTORIC ENCOUNTERS [facility] ONLY Shena Willis MD [address] [place] [phone] Social History Tobacco Use Types Packs/Day Years [...] couldn't tolerate She was admitted 2011 at [facility] she had MRI brain that was [...] use: No Exercise habits: she walk Retired [employer]PER[employer] , lives alone Family history: Heart condition [...] brain done initially for her headache from [facility] Will continue Emagility injection Will authorize patient [...] 50 minutes. The majority of the actual dgtx-ur-sxys visit was spent counseling the patient with respect to the current neurological picture. Shena Willis MD documented in this encounter Plan of Treatment Upcoming Encounters Date Type Department Care Team ([facility] st Contact Info) Description 10/24/2024 10:20 AM EDT Appointment Radiology Department - [address] [phone] 12/11/2024 8:00 AM EDT Office Visit [place] - [address] [place] [phone] Shena Willis MD [address] [facility] [address] [place] [phone] 12/27/2024 10:00 AM EDT Procedure visit [facility] [address] [place] [phone] Shena Willis MD [address] [facility] [address] [place] [phone] 01/25/2025 11:30 AM EDT Office Visit Adult Medicine [address] [phone] Alcides King MD [address] [place] [id number] documented as of this encounter Visit Diagnoses Not on filedocumented in this encounter Care Teams Knot Tying Operator Relationship Specialty Start Date End Date Alcides King MD [address] [place] [address] PCP - General Internal Medicine 11/11/21 documented as of this encounter
--- OUTSIDE RECORDS SUMMARY | 2024-10-17 11:05 | XMS_ITS ---
Author Name [facility] Organization Unknown History of Medication Use Medication Directions Dispensed Refills Start Date End Date Stat us Emgality 120 MG/ML injection INJECT 120 MG INTO THE SKIN EVERY 30 DAYS. 03/15/2024 active buPROPion (WELLBUTRIN XL) 150 MG 24 hr tablet TAKE 1 TABLET BY MOUTH EVERY DAY IN THE MORNING 03/09/2024 active cetirizine (ZyrTEC) 10 MG tablet Take 1 tablet (10 mg total) by mouth daily. 02/19/2024 active omeprazole (PriLOSEC) 20 MG capsule TAKE 1 CAPSULE BY MOUTH 2 TIMES DAILY (BEFORE MEALS) 02/04/2024 active Melatonin 5 MG TABS TAKE 2 OR 3 TABLETS BY MOUTH AT BEDTIME, NEEDED 02/01/2024 active hydroCHLOROthiazide (HYDRODIURIL) tablet 25 mg Take 1 tablet (25 mg total) by mouth daily. 01/26/2024 active albuterol 108 (90 Base) MCG/ACT inhaler INHALE 2 PUFFS INTO THE LUNGS EVERY 4 HOURS NEEDED FOR COUGH, WHEEZING OR SHORTNESS OF BREATH. 12/22/2023 active topiramate (Topamax) 50 MG tablet Take 1 tablet (50 mg total) by mouth. 12/18/2014 4 aborted Problems Problem Status Onset Date Problem Type Date of Resolution Source Migraine headache active EncounterDiagnosisAct CTTHNEMG Chronic migraine with aura without status migrainosus, not intractable active EncounterDiagnosisAct CTT HNEMG
== END 2024-10-17 10:51 | disposition home or self-care (01) ==
LOC: HO.HPS 09:58
PROVIDERS: PCP Internal Medicine; Visit Provider Internal Medicine
DX: E66.9 Obesity, unspecified (principal); G47.33 Obstructive sleep apnea (adult) (pediatric); R40.0 Somnolence; J44.9 Chronic obstructive pulmonary disease, unspecified; Z86.59 Personal history of other mental and behavioral disorders
CPT/HCPCS: 99204

== ENCOUNTER → 2024-10-17 09:57 | Outpatient (BNVA) | payer OTHER, SELFPAY | PROVIDERS: PCP Internal Medicine; Visit Provider Internal Medicine | DX: J44.9 Chronic obstructive pulmonary disease, unspecified (principal); G47.33 Obstructive sleep apnea (adult) (pediatric); G43.909 Migraine, unspecified, not intractable, without status migrainosus; E66.9 Obesity, unspecified; R40.0 Somnolence; R06.83 Snoring; Z86.59 Personal history of other mental and behavioral disorders; Z68.36 Body mass index [BMI] 36.0-36.9, adult; Z99.89 Dependence on other enabling machines and devices | CPT/HCPCS: 99202 ==

== ENCOUNTER → 2024-12-27 08:41 | Outpatient (REF) | payer OTHER, SELFPAY ==
--- OUTSIDE RECORDS SUMMARY | 2024-03-23 08:40 | XMS_ITS | Encounter Summary ---
Author Organization [facility] Address [address] [place] [address] Care Team Providers Care Solar Thermal Technician Name Role Phone Alcides King MD Primary Care Provider [phone] Encounter Details Date Type Department Care Team ([facility] st Contact Info) Description 03/23/2024 8:40 AM EDT Hospital Encounter TH HISTORIC ENCOUNTERS [facility] ONLY Shena Willis MD [address] [place] [address] [phone] Social History Tobacco Use Types Packs/Day Years Used Date Smoking Tobacco: Never Smokeless Tobacco: Never Alcohol Use Standard Drinks/Week Comments Yes 0 (1 standard drink = 0.6 oz pur e alcohol) Comments Unknown Sex and Gender Information Value Date Recorded Sex Assigned at Female 09/11/2024 1:54 PM EDT Legal Sex Female 2:00 AM EST Gender Identity Female 09/11/2024 1:54 PM EDT Sexual Orientation Straight 09/11/2024 1: 54 PM EDT documented as of this encounter Last Filed Vital Signs Vital Sign Reading Time Taken Comments Blood Pressure 122/82 03/23/2024 9:18 AM EDT Sit ting Left arm Pulse 69 03/23/2024 9:18 AM EDT Temperature - - Respiratory Rate - - Oxygen Saturation - - Inhaled Oxygen Concentration - - Weight - - Height - - Body Mass Index - - documented in this encounter Progress Notes * Shena Willis MD - 03/23/2024 9:00 AM EDT HPI: Joseph Leone is a 58 y.o. year old female referred to our center by No primary care provider on file. for evaluation and management of migraine headache 58 years old female with past medical history of anxiety depression and hypertension, MADYSON untreated, referred to us for evaluation of headaches Headache: Patient presents for evaluation of headache. Symptoms began about when she was 26 yo . Generally, the headaches last about several hours and occur prior to emgality she used have headache , after emigality 03/29 , used have 03/09 headache now 12/07 . The headaches do not seem to be related to any time of the day. The headaches are usually moderate, pounding and throbbing and are located in Rt frontal temporal , occipital . The patient rates her most severe headaches a 10 on a scale from 1 to 10. Recently, the headaches have been decreasing in both severity and frequency. Work attendance or other daily activities are affected by the headaches. Precipitating factors include: odors and stress. The headaches are usually preceded by an aura consisting of photopsias and visual scintillations. Associated neurologic symptoms: nausea , photophobia , phobia , rarely tingling face and fingers . The patient denies dizziness and loss of balance. Home treatment has included acetaminophen, ibuprofen and excedrin , amitriptyline, depakote and botox , reaction to depakote , topamax , darkening the room, resting and sleeping with no improvement. Other history includes: migraine headaches diagnosed in the past. Family history includes no known family members with significant headaches. She tried Nuretc in past for abortive She tried imtrex in patient with no help She tried Botox in past with no relief around 2010 , she had more than 3 rounds , not all FDAapproved sites , she didn't have improvement She has occasional insomnia , she was on CPAP machine for a while couldn't tolerate She was admitted 2011 at [facility] she had MRI brain that was reported not concerning Past Medical History: Diagnosis Date ??? Anxiety ??? Depression ??? Hypertension ??? Migraine Current Outpatient Medications Medication Sig Dispense Refill ??? amLODIPine (NORVASC) tablet 5 mg Take 1 tablet (5 mg total) by mouth daily. ??? fluticasone (FLONASE) 50 MCG/ACT nasal spray 1-2 sprays in each nostril daily as needed ??? hydroCHLOROthiazide (HYDRODIURIL) tablet 25 mg Take 1 tablet (25 mg total) by mouth daily. ??? topiramate (Topamax) 50 MG tablet Take 1 tablet (50 mg total) by mouth. ??? albuterol 108 (90 Base) MCG/ACT inhaler INHALE 2 PUFFS INTO THE LUNGS EVERY 4 HOURS NEEDED FOR COUGH, WHEEZING OR SHORTNESS OF BREATH. ??? buPROPion (WELLBUTRIN XL) 150 MG 24 hr tablet TAKE 1 TABLET BY MOUTH EVERY DAY IN THE MORNING ??? cetirizine (ZyrTEC) 10 MG tablet Take 1 tablet (10 mg total) by mouth daily. ??? cloNIDine (CATAPRES) tablet 0.1 mg ??? Emgality 120 MG/ML injection INJECT 120 MG INTO THE SKIN EVERY 30 DAYS. ??? Melatonin 5 MG TABS TAKE 2 OR 3 TABLETS BY MOUTH AT BEDTIME, NEEDED ??? omeprazole (PriLOSEC) 20 MG capsule TAKE 1 CAPSULE BY MOUTH 2 TIMES DAILY (BEFORE MEALS) ??? predniSONE (DELTASONE) tablet 20 mg PLEASE SEE ATTACHED FOR DETAILED DIRECTIONS No current facility-administered medications for this visit. Not on File Social history: Tobacco: No Alcohol socially Drug use: No Exercise habits: she walk Retired MIXING TANK OPERATOR , lives alone Family history: Heart condition , SLE sister , cancer father Neurologic Exam: BP 122/82 (BP Location: Left arm, Patient Position: Sitting, Cuff Size: Adult Regular) Pulse 69 Temp 96.7 ??F (35.9 ??C) (Temporal) MS: AOx3 CN: perrla,V1-3 intact to LT, face symmetric, bilateral SCM/trapezius 5/5, tongue/uvula/palate midline Motor: 5/5 in all extremities Sensation: Intact to light touch, temperature, and vibration in all extremities Reflexes: 2+ in bilateral biceps and patellae, toes downgoing bilaterally Cerebellar: FNF intact bilaterally, FFM intact bilaterally, AB intact bilaterally, slight difficulty with tandem gait, romberg negative Labs: Imaging: All images were reviewed by me. A/P: Joseph Leone is a 58 y.o. year old female past medical history of anxiety depression and hypertension, MADYSON untreated , referred to us for evaluation of longer-lasting history of chronic migraineheadaches since she was 25 years old her migraine headache is debilitating was almost 28-30 headache days a month slightly improved with Emgality to 15 headache days a month her intensity was 10/10 down to 7/10 now her migraine headaches are still affecting her quality of life, patient tried Botox in the past with help but she was getting injection sites of the FDA approved sites prolonged discussion with the patient her chronic migraines need further treatment she already failed Topamax , Elavil, had allergy to Depakote she also failed Nurtec and sumatriptan for abortive therapy With the patient a retrial of Botox for chronic migraines discussed mechanism of action risks and benefits and she agreed with proceeding Prolonged discussion with the patient with the risk of on treated sleep apnea expressed understanding Will obtain basic labs and vitamin levels -Will obtain MRI brain done initially for her headache from [facility] Will continue Emagility injection Will authorize patient for Botox for chronic migraine Rizatriptan abortive Take one tablet as needed for headaches, may repeat in 2 hours, do not exceed more than 2 per day Counseled on avoidance of migraine triggers, particularly sleep deprivation, missed meals, dehydration, certain foods and avoiding excessive caffeine/NSAIDs. -RTC in 3months for follow up The patient and I discussed the clinical picture during today's appointment. Additional time was spent prior to the actual appointment reviewing records, lab values and imaging results and preparing documentation for today's visit. There was also time spent following the in person visit documenting, arranging for further diagnostic testing and follow-up appointments. The entire time spent in thisprocess was greater than 50 minutes. The majority of the actual gegq-jx-mfnx visit was spent counseling the patient with respect to the current neurological picture. Shena Willis MD documented in this encounter Plan of Treatment Upcoming Encounters Date Type Department Care Team (Late st Contact Info) Description 12/27/2024 10:00 AM EDT Procedure visit [facility] [address] [place] [address] Shena Willis MD [address] [place] [address] 01/25/2025 11:30 AM EDT Office Visit Adult Medicine [address] [phone] Alcides King MD [address] [place] [address] documented as of this encounter Visit Diagnoses Not on filedocumented in this encounter Care Teams Solar Thermal Technician Relationship Specialty Start Date End Date Alcides King MD [address] [place] [address] PCP - General Internal Medicine 11/11/21 documented as of this encounter
--- OUTSIDE RECORDS SUMMARY | 2024-12-27 08:58 | XMS_ITS | Clinical Summary ---
Author Organization [facility] Address [address] [place] [address] Care Team Providers Care Offset Lithographic Press Setter Name Role Phone Unavailable Primary Care Provider Unavailabl e Medications Medication Sig Dispensed Refills Start Date End Date Status albuterol 108 (90 Base) MCG/ACT inhaler INHALE 2 PUFFS INTO THE LUNGS EVERY 4 HOURS NEEDED FOR COUGH, WHEEZING OR SHORTNESS OF BREATH. 0 12/22/2023 Active amLODIPine (NORVASC) tablet 5 mg Take 1 tablet (5 mg total) by mouth daily. 0 12/30/2023 Active buPROPion (WELLBUTRIN XL) 150 MG 24 hr tablet TAKE 1 TABLET BY MOUTH EVERY DAY IN THE MORNING 0 03/09/2024 Active cetirizine (ZyrTEC) 10 MG tablet Take 1 tablet (10 mg total) by mouth daily. 0 02/19/2024 Active cloNIDine (CATAPRES) tablet 0.1 mg 0 03/22/2024 Active fluticasone (FLONASE) 50 MCG/ACT nasal spray 1-2 sprays in each nostril daily as needed 0 04/24/2009 Active Emgality 120 MG/ML injection INJECT 120 MG INTO THE SKIN EVERY 30 DAYS. 0 03/15/2024 Active hydroCHLOROthiazide (HYDRODIURIL) tablet 25 mg Take 1 tablet (25 mg total) by mouth daily. 0 01/26/2024 Active Melatonin 5 MG TABS TAKE 2 OR 3 TABLETS BY MOUTH AT BEDTIME, NEEDED 0 02/01/2024 Active omeprazole (PriLOSEC) 20 MG capsule TAKE 1 CAPSULE BY MOUTH 2 TIMES DAILY (BEFORE MEALS) 0 02/04/2024 Active predniSONE (DELTASONE) tablet 20 mg PLEASE SEE ATTACHED FOR DETAILED DIRECTIONS 0 12/22/2023 Active rizatriptan (MAXALT-SHRIMP PEELER) 10 MG disintegrating tablet Take 1 tablet (10 mg total) by mouth as needed for migraine. May repeat in 2 hours if needed 10 tablet 0 03/23/2024 Active Social History Tobacco Use Types Packs/Day Years Used Date Smoking Tobacco: Never Assessed Sex and Gender Information Value Date Recorded Sex Assigned at Female 02/14/2024 10:47 AM EDT Gender Identity Not on file Sexual Orientation Not on file Job Start Date Occupation Industry Not on file Not on file Not on file Last Filed Vital Signs Vital Sign Reading Time Taken Comments Blood Pressure 122/82 03/23/2024 9:18 AM EDT Pulse 69 03/23/2024 9:18 AM EDT Temperature 35.9 C (96.7 F) 03/23/2024 9:18 AM EDT Respiratory Rate - - Oxygen Saturation - - Inhaled Oxygen Concentration - - Weight - - Height - - Body Mass Index - - Plan of Treatment Health Maintenance Due Date Last Done Comments Hepatitis B Vaccines (1 of 3 - 3-dose series) 1965 03/17/2010, 01/30/2010, 12/17/2009 Hepatitis C Screening 1965 Depression Screening 1977 Preventative Health Evaluation 09/11/1983 Cervical Cancer Screening (Pap Smear) 1986 Colon Cancer Screening (Colonoscopy) 2010 Breast Cancer Screening (Mammogram) 09/11/2015 COVID-19 Vaccine ( season) 2024 05/29/2021, 09/05/2020 Influenza Vaccine (#1) 2025 , 05/08/2019, 06/28/2018, Additional history exists DTap / Tdap / Td (2 - Td or Tdap) 11/15/2031 11/14/2021 Shingrix-Zoster Vaccine Completed 07/29/2022, 05/25 Pneumococcal Vaccine Aged Out No long er eligible based on patient's age to complete this topic RSV Ped < 20 months Aged Out No longe r eligible based on patient's age to complete this topic [address] [place] [id number] Joseph Leone Personal/Family Self [address] [place] [address] [address] [place] [id number]
== END ==
LOC: HO.SL 08:41
PROVIDERS: PCP Internal Medicine; Visit Provider Internal Medicine
DX: G47.33 Obstructive sleep apnea (adult) (pediatric) (principal); R40.0 Somnolence; R06.83 Snoring; E66.9 Obesity, unspecified
CPT/HCPCS: 95806

== ENCOUNTER → 2024-12-27 08:55 | Outpatient (BNV) | payer OTHER, SELFPAY | PROVIDERS: PCP Internal Medicine; Visit Provider Internal Medicine | DX: G47.33 Obstructive sleep apnea (adult) (pediatric) (principal) | CPT/HCPCS: 95806 ==

== ENCOUNTER 2025-01-23 11:06 | Outpatient (AMB) | payer OTHER, SELFPAY ==
--- OUTSIDE RECORDS SUMMARY | 2024-03-23 08:40 | XMS_ITS | Encounter Summary ---
Author Organization [facility] Address [address] [place] [address] Care Team Providers Care Servomechanism Designer Name Role Phone Alcides King MD Primary Care Provider [phone] Encounter Details Date Type Department Care Team ([facility] Contact Info) Description 03/23/2024 8:40 AM EDT Hospital Encounter TH HISTORIC ENCOUNTER[facility] ONLY Shena Willis MD [address] [place] [address] Social History Tobacco Use Types Packs/Day Years [...] couldn't tolerate She was admitted 2011 at [facility] she had MRI brain that was reported [...] use: No Exercise habits: she walk Retired NURSE AUDITOR , lives alone Family history: Heart condition [...] brain done initially for her headache from [facility] Will continue Emagility injection Will authorize [...] 50 minutes. The majority of the actual pejz-ky-mkxw visit was spent counseling the patient with respect to the current neurological picture. Shena Willis MD documented in this encounter Plan of Treatment Upcoming Encounters Date Type Department Care Team (Late st Contact Info) Description 01/25/2025 11:30 AM EDT Office Visit Adult Medicine [address] [phone] Alcides King MD [address] [place] [phone] 04/04/2025 1:00 PM EST Procedure visit [address] [place] [address] Shena Willis MD [address] [place] [address] documented as of this encounter Visit Diagnoses Not on filedocumented in this encounter Care Teams Servomechanism Designer Relationship Specialty Start Date End Date Alcides King MD [address] [place], [place] PCP - General Internal Medicine 11/11/21 documented as of this encounter
--- NOTE | 2025-01-23 11:18 | A.OFFVIS_ITS ---
Vital Signs 01/23/25 11:19 Height 5 ft Weight 186 lb 4.65 oz BMI 36.4 BP 110/72 Blood Pressure Location Lt brachial Position Sitting Pulse 63 Pulse Source Pulse Oximeter Pulse Oximetry (%) 96 Oxygen Delivery Method Room Air Intake Visit Reasons: sleep apnea Intake Note: pt is here for follow up of sleep study, and she feels good today Baster Hand Required: No Allergies Penicillins Allergy (Severe, Verified 01/23/25 11:37) Rash tramadol Allergy (Severe, Verified 01/23/25 11:37) rash Medication List - Last Reconciled 01/23/25 by Irais Enamorado MD albuterol sulfate 90 mcg/actuation 2 puffs inhalation Q6H PRN amlodipine 5 mg PO DAILY benzonatate 200 mg PO BID PRN fluticasone propion-salmeterol 115-21 mcg/actuation (Advair HFA) 2 puffs inhalation BID galcanezumab-gnlm (Emgality) mg subcut hydrochlorothiazide 25 mg PO DAILY omeprazole 20 mg PO DAILY ubrogepant (Ubrelvy) 100 mg PO ONCE Do you need a note to return to daycare/school/sports/work: No HPI HPI sleep apnea: Details: SABAS, GROSSLY OBESE, WITH HISTORY OF OBSTRUCTIVE SLEEP APNEA, COULD NOT USE FULLFACE MASK DUE TO CLAUSTROPHOBIA, SHE HAS USED THE NASAL PILLOWS IN THE PAST. BUT HAS NOT BEEN USING CPAP FOR A WHILE WAS SEEN BY ME A FEW MONTHS AGO . SHE COMPLAINED OF DIFFICULTY IN SLEEPING, WAKING UP A FEW. TIMES DURING THE NIGHT AND REMAINING TIRED AND SLEEPY DURING THE DAYTIME. DOES SHE HAD A REPEAT HOME-BASED SLEEP STUDY, AND SHE IS HERE TODAY TO GO OVER THE RESULTS. STILL HAS THE SAME SYMPTOMS. [facility] Medical History Snoring History of claustrophobia COPD (chronic obstructive pulmonary disease) Somnolence MADYSON (obstructive sleep apnea) Obesity (BMI 30-39.9) Social History Patient Tobacco Use Status: Never used Tobacco Review of Systems Const All systems reviewed & are unremarkable except as noted in HPI and below Reports snoring Eyes Reports no additional complaints ENT Reports nasal congestion (MILD OFF AND ON) Card Denies chest pain, Denies syncope, Denies irregular heart rhythm, Denies leg edema and Reports dyspnea on exertion (MILD) Resp Reports as per HPI, Reports dyspnea on exertion (MILD) and Reports snoring GI Details: MODERATELY EXCESSIVE WHEN SLEEPING Reports no additional complaints Skin/Breast Reports system reviewed and no additional complaints, except as documented Neuro Denies syncope and Reports other (MIGRAINE SYNDROME) Psych Reports no additional complaints Endo Reports no additional complaints Ramón/Lymph Reports no additional complaints Physical Exam Vital Signs: Last Vital Signs Pulse 63 01/23/25 11:19 BP 110/72 01/23/25 11:19 Pulse Ox 96 01/23/25 11:19 Oxygen Delivery Method Room Air 01/23/25 11:19 BMI result Body Mass Index 36.4 GROSSLY OBESE, ROUND FACE. SHORT NECK 15-1/2 INCH. Const General: healthy appearing (EXCEPT FOR BEING OBESE), comfortable, no acute distress, alert and awake Orientation/consciousness: patient oriented x3 HEENT Head: Yes normal to inspection General nose exam: No nasal polyps present and No nasal discharge present Face and sinus: Yes sinuses nontender Mouth: oropharynx abnormals (NARROW AND CROWDED OROPHARYNX WITH MALLAMPATI CLASS 3) Throat: Yes posterior oropharynx normal Eyes General: appearance normal, both eyes and all related structures Neck Neck: Yes normal visual inspection, Yes no lymphadenopathy, Yes trachea midline, Yes no JVD and Yes other (NECK CIRCUMFERENCE 15-1/2 INCH) Thyroid: Thyroid normal Chest Chest palpation & inspection: normal inspection of the chest, normal palpation of entire chest wall and no tenderness Resp Effort & Inspection: normal respiratory effort and prolonged expiratory phase Auscultation: clear to auscultation bilaterally, no crackles, no wheezes and diminished lung sounds (BREATH SOUNDS ARE MODERATELY DISTANT) Cardio Palpation: normal PMI Rate: regular rate Rhythm: regular rhythm Heart sounds: no gallops and no murmurs Peripheral pulses: Peripheral pulses 2+ throughout GI Palpation (GI): Soft to palpation, Tenderness to palpation present (GI), No hepatosplenomegaly present and Palpable mass present Auscultation: normal bowel sounds Back/Spine/Pelvis Thoracic/Lumbar Spine: thoracic and lumbar spine normal to inspection Skin General skin exam: no rashes or lesions noted Neuro General: patient oriented x3 and no focal motor deficits Cranial nerves: Yes CN's II-XII intact bilaterally Extrem General: Yes normal to inspection, Yes no clubbing, cyanosis or edema and Yes no calf tenderness Psych Speech and movement: Normal speech and movement present Results Reviewed Results Reviewed: HOME-BASED SLEEP STUDY ON 12/27 SHOWS THAT SHE HAS MILD TO MODERATE DEGREE OF SLEEP APNEA WITH TOTAL SLEEP TIME AHI 15 AND SNORING FOR 32% OF THE SLEEP TIME. O2 SAT WAS BELOW 88% FOR 7 MINUTES Assessment & Plan Assessment & Plan (1) Obesity (BMI 30-39.9): Comment: PATIENT IS GROSSLY OBESE, ASSOCIATED WITH OBSTRUCTIVE SLEEP APNEA WEIGHT HAS BEEN UNCHANGED. HE IS NOT IN ANY WEIGHT REDUCTION PROGRAM. Code(s): E66.9 - Obesity, unspecified Category: Medical Plan: HAD A LENGTHY TALK ABOUT IMPORTANCE OF LOSING WEIGHT. I DID TELL HER THAT IF SHE LOSES 10% OF THE CURRENT BODY WEIGHT ( 18-20 LBs ) SHE MAY BE ABLE TO OVERCOME THE SEVERITY OF HER SLEEP APNEA, AND NOT NEED THE CPAP. SHE IS GOING TO TRY HER BEST. (2) History of claustrophobia: Comment: PATIENT COULD NOT USE THE CPAP AFTER HER SLEEP STUDY IN 2018, BECAUSE SHE HAS CLAUSTROPHOBIA AND COULD NOT EVEN USE THE NASAL MASK. BUT WHEN SHE SUFFERED FROM COVID INFECTION AND RESPIRATORY INSUFFICIENCY SHE DID USE THE CPAP DURING DAYTIME AND IT WAS OKAY. Code(s): Z86.59 - Personal history of other mental and behavioral disorders Category: Medical Plan: HAD A GOOD TALK AND SHE IS WILLING TO TRY USING THE NASAL PILLOWS. (3) MADYSON (obstructive sleep apnea): Comment: SHE HAS HISTORY OF CONFIRMED DIAGNOSIS OF OBSTRUCTIVE SLEEP APNEA, SINCE 2018. THE DIAGNOSIS IS RECONFIRMED BY THE HOME-BASED SLEEP STUDY NOTED ABOVE. Code(s): G47.33 - Obstructive sleep apnea (adult) (pediatric) Category: Medical Plan: DISCUSS THE OPTIONS FOR TREATMENT, MAINLY USE OF CPAP WORSE IS LOSS OF WEIGHT BY ABOUT 10% OF THE CURRENT WEIGHT. IT MIGHT TAKE SOME TIME BEFORE SHE CAN LOSE SIGNIFICANT WEIGHT. IT IS BETTER FOR HER TO USE THE CPAP. AND SHE DOES AGREE. Plan WILL ORDERED CPAP WITH AUTO PAP MODE AND PRESSURE SETTING 6-20 CMs, USING NASAL PILLOWS . SHE MAY USE IT IN UPRIGHT POSITION DURING THE DAYTIME WELL. DO USE HUMIDIFICATION REGULARLY WILL CHECK HER COMPLIANCE IN ABOUT 6 WEEKS Coding Level of Care Code Est Pt Level 3 (81232) Diagnoses Obesity (BMI 30-39.9) E66.9 History of claustrophobia Z86.59 MADYSON (obstructive sleep apnea) G47.33
[2025-01-23 11:19] VITALS: BP 110/72; PULSE 63; O2SAT 96; BMI 36.4
--- OUTSIDE RECORDS SUMMARY | 2025-01-23 11:59 | XMS_ITS | Clinical Summary ---
Author Organization [facility] Address [address] [place] [address] Care Team Providers Care Blending Machine Feeder Name Role Phone Unavailable Primary Care Provider [...] FOR DETAILED DIRECTIONS 0 12/22/2023 Active rizatriptan (MAXALT-MARKETING WRITER) 10 MG disintegrating tablet Take 1 tablet [...] to complete this topic [address] [place] [id number] Joseph Leone Personal/Family Self [address] [place] [address] [address] [place] L[place] [id number]
--- OUTSIDE RECORDS SUMMARY | 2025-01-23 11:59 | XMS_ITS | Clinical Summary ---
Author Organization [address] [place] [address] [place] [phone] Phone Care Team Providers Care Driver Guide Name Role Phone Alcides King MD Primary [...] chloride (AYR) 0.65 % nasal drops 1 Centre by Nasal route 3 times daily as needed for Congestion. 4 Active omeprazole (PriLOSEC) [address] [...] for dizziness. 60 tablet 1 5 Active Ubrelvy 100 mg tabletIndication s:Chronic migraine with aura without status migrainosus, not intractable 1 p.o. at onset of migraine. May repeat once after 2 hours. Maximum dose: 200 mg/24 hrs 9 tablet 2 5 Active galcanezumab-gnl m (Emgality Pen) 120 mg/mL injection pen Inject 1 mL (120 mg total) under the skin every 28 (twenty-eight ) days. 1 each 5 5 Active Hospital, Clinic, or Other Facility Administered Medication Ordered Dose Route Frequency Start Date End Date Status onabotulinumtoxinA (BOTOX) 200 unit injection 200 UnitsIndications:Chronic migraine with aura without status migrainosus, not intractable 200 Units IM Once 12/27/2024 12/27/2024 Ended Active Problems Problem Noted Date Diagnosed [...] 06/07/2013 MADYSON on CPAP 11/02/2011 Overview (03/24/2024): [facility] Polysomnogram: Date 07/26/2019; Wt 174#; BMI 33; [...] Encounters Date Type Department Care Team Description 12/27/2024 10:00 AM EDT Procedure visit [address] [phone] Sehna Willis MD Chronic migraine with aura without status migrainosus, not intractable (Primary Dx) 12/11/2024 8:00 AM EDT Office Visit [address] [phone] Shena Willis MD Chronic migraine with aura without status migrainosus, not intractable (Primary Dx); Dizziness; White matter disease 10/24/2024 9:48 AM EDT - 10/24/2024 11:59 PM EDT Hospital Encounter Radiology Department - [address] [phone] Encounter for screening mammogram for breast cancer Discharge Disposition: Home or Self Care from Last 3 Months Immunizations Name Administration [...] 6mo and older 04/06/2017,06/15/2013 Influenza, Unspecified 03/14/2021 [employer] SARS-CoV-2 COVID -19, vector-nr, [id number], preservative free 09/05/2020 MMR, measles mumps and rubel la Live (Priorix; M-M-R II) 12mo and older 06/15/2013 [employer] SARS-CoV-2 COVID-19, mRNA, LNP-S, preservative free 05/29/2021 Tdap Tetanus diptheria acell ular pertussis (Boostrix; Adacel) 7yo and older 11/14/2021,10/01/2011 Zoster recombinant (Shingrix ) 19yo and older 07/29/2022,05/25/2022 Surgical History Surgery Date Site/Laterality Comments ENDOMETRIAL ABLATION PROCEDURE: MN ENDOMETRIAL ABLTJ THERMAL W/O HYSTEROSCOPIC GUID; COMMENT: Early 40s TUBAL LIGATION PROCEDURE: HISTORICAL TUBAL LIGATION OTHER SURGICAL HISTORY Left PROCEDURE: ---- OTHER ----; COMMENT: removal of extra breast CYST REMOVAL PROCEDURE: MN EXCISION PILONIDAL CYST/SINUS SIMPLE BREAST SURGERY 1981 Left PROCEDURE: MN UNLISTED PROCEDURE BREAST; COMMENT: extra nipple removed [...] 09/11/2024 1: 54 PM EDT Obstetrics History Para Term AB IAB SAB Ectopic Multiple Livin g Live Births 2 2 2 2 Date Outcome GA Total Labor Labor/2nd/3rd Weight Sex Type Anes PTL Margaux A1 A5 Name Clin Term Term Last Filed Vital Signs Vital Sign Reading Time Taken Comments Blood Pressure 130/79 12/11/2024 8:12 AM EDT Pulse 69 12/11/2024 8:12 AM EDT Temperature 36.6 C (97.8 F) 09/04/2024 9:20 AM EDT Respiratory Rate 16 09/04/2024 9:20 AM EDT Oxygen Saturation 99% 12/11/2024 8:12 AM EDT Inhaled Oxygen Concentration - - Weight 83.9 kg (185 lb) 12/11/2024 8:12 AM EDT Height 165.1 cm (5' 5 ) 12/11/2024 8:12 AM EDT Body Mass Index 30.79 12/11/2024 8:12 AM EDT Plan of Treatment Upcoming Encounters Date Type Department Care Team (Late st Contact Info) Description 01/25/2025 11:30 AM EDT Office Visit Adult Medicine [facility] [address] [place] [phone] Alcides King MD [address] [place] [address] 04/04/2025 1:00 PM EST Procedure visit [facility] [address] [place] [address] Shena Willis MD [address] [place] [phone] Health Maintenance Due Date Last Done Comments Hepatitis B Vaccines (1 of 3 - 19+ 3-dose series) 1984 03/17/2010, 01/30/2010, 12/17/2009 Pneumococcal Vaccine: 50+ Years (1 of 2 - PCV) 1984 HIV Screening 05/09/2022 Medicare Annual Wellness Visit 05/09/2022 Social Influencers of Health Screening 05/09/2022 Depression Screening 05/31/2024 Influenza Vaccine (#1) 2025 , 03/26/2023, 02/04/2022, Additional history exists Hypertension/CHF/CAD Annual BMP Blood Test 12/11/2025 12/11/2024, 09/04/2024, 11/22/2023, Additional history exists Cervical Cancer Screening: HPV 2026 2021 Breast Cancer Screening 10/24/2026 10/25/19, 10/11/2023, 10/11/2023, Additional history exists Colorectal Cancer Screening: Colonoscopy 03/21/2029 03/21/2019 Cholesterol Screening (Lipid Panel) 09/04/2029 09/04/2024, 07/22/2023 DTaP,Tdap,and Td Vaccines (3 - Td or Tdap) 11/15/2031 11/14/2021, 10/01/2011 RSV Immunization Adult Patients (1 - 1-dose 75+ series) 2040 MMR Vaccines Aged Out 06/15/2013 No longer eligi ble based on patient's age to complete this topic Hepatitis C Screening Completed 12/28/2018 Zoster Vaccines Completed 07/29/2022, 02/0 11/2022, 05/25/2022, Additional history exists COVID-19 Vaccine [...] Procedure Name Priority Date/Time Associated Diagnosis Comments CBC WITH AUTO DIFFERENTIAL Routine 12/11/2024 8:57 AM EDT Chronic migraine with aura without status migrainosus, not intractable CBC AND DIFFERENTIAL Routine 12/11/2024 8:57 AM EDT Chronic migraine with aura without status migrainosus, not intractable BUN Routine 12/11/2024 8:57 AM EDT Chronic migraine with aura without status migrainosus, not intractable CREATININE, SERUM Routine 12/11/2024 8:5 7 AM EDT Chronic migraine with aura without status migrainosus, not intractable ELECTROLYTE PANEL Routine 12/11/2024 8:5 7 AM EDT Chronic migraine with aura without status migrainosus, not intractable MG MAMMO DIGITAL SCREENING W MICHAEL BILAT Routine 10/24/2024 10:16 AM EDT Encounter for screening mammogram for breast cancer LIPID PANEL WITH REFLEX TO DIRECT LDL Routine 09/04/2024 10:45 AM EDT Essential (primary) hypertension Mixed hyperlipidemia Prediabetes Gastroesophageal reflux disease without esophagitis Mild intermittent asthma without complication Migraine without aura and without status migrainosus, not intractable MADYSON on CPAP Allergic rhinitis, unspecified seasonality, unspecified trigger HPV Routine 2021 COLONOSCOPY Routine 03/21/2019 HEPATITIS C SCREENING Routine 12/28/2018 from Last 3 Months or Most Recently Relevant to Health Maintenance Results * (ABNORMAL) CBC auto differential (12/11/2024 8:57 AM EDT) WBC 10.4 4.8 - 10.8 K/mcL LAB HEMETOLOGY METHOD 12/11/2024 10:17 AM [facility] RBC 5.30(H) 3.80 - 4.80 M/mcL LAB HEMETOLOGY METHOD 12/11/2024 10:17 AM [facility] Hemoglobin 15.1 11.5 - 16.0 g/dL LAB HEMETOLOGY METHOD 12/11/2024 10:17 AM [facility] Hematocrit 47.0 35.0 - 47.0 % LAB HEMETOLOGY METHOD 12/11/2024 10:17 AM [facility] MCV 88.0 79.0 - 98.0 FL LAB HEMETOLOGY METHOD 12/11/2024 10:17 AM [facility] MCH 28.3 27.0 - 32.0 pcg LAB HEMETOLOGY METHOD 12/11/2024 10:17 AM [facility] MCHC 32.1 32.0 - 37.0 g/dL LAB HEMETOLOGY METHOD 12/11/2024 10:17 AM [facility] RDW 14.2 11.0 - 15.0 % LAB HEMETOLOGY METHOD 12/11/2024 10:17 AM [facility] Platelets 347 130 - 400 K/mcL LAB HEMETOLOGY METHOD 12/11/2024 10:17 AM [facility] MPV 9.2 7.0 - 11.0 FL LAB HEMETOLOGY METHOD 12/11/2024 10:17 AM [facility] NRBC 0.0 <1.0 % LAB HEMETOLOGY METHOD 12/11/2024 10:17 AM [facility] NRBC Absolute 0.00 <0.10 K/mcL LAB HEMETOLOGY METHOD 12/11/2024 10:17 AM [facility] Neutrophils Relative 62.1 % LAB HEMETOLOGY METHOD 12/11/2024 10:17 AM [facility] Lymphocytes Relative 28.0 % LAB HEMETOLOGY METHOD 12/11/2024 10:17 AM [facility] Monocytes Relative 7.4 % LAB HEMETOLOGY METHOD 12/11/2024 10:17 AM [facility] Eosinophils Relative 1.7 % LAB HEMETOLOGY METHOD 12/11/2024 10:17 AM [facility] Basophils Relative 0.5 % LAB HEMETOLOGY METHOD 12/11/2024 10:17 AM [facility] Immature Granulocytes Relative 0.3 % LAB HEMETOLOGY METHOD 12/11/2024 10:17 AM [facility] Neutrophils Absolute 6.46 1.50 - 7.00 K/mcL LAB HEMETOLOGY METHOD 12/11/2024 10:17 AM [facility] Lymphocytes Absolute 2.91 1.00 - 5.00 K/mcL LAB HEMETOLOGY METHOD 12/11/2024 10:17 AM [facility] Monocytes Absolute 0.77 0.20 - 1.00 K/mcL LAB HEMETOLOGY METHOD 12/11/2024 10:17 AM [facility] Eosinophils Absolute 0.18 0.00 - 0.50 K/mcL LAB HEMETOLOGY METHOD 12/11/2024 10:17 AM EDT [facility] Basophils Absolute 0.05 0.00 - 0.20 K/mcL LAB HEMETOLOGY METHOD 12/11/2024 10:17 AM EDT [facility] Immature Granulocytes Absolute 0.03 0.00 - 0.03 K/[facility] LAB HEMETOLOGY METHOD 12/11/2024 10:17 AM EDT [facility] Blood Venous blood specimen / Unknown Venipuncture / Unknown 12/11/2024 8:57 AM EDT 12/11/2024 8:57 AM EDT us Shena Willis MD LAB BLOOD ORDERABLES Fin al Result Performing Organization Address [facility]/ZIP Co de Phone Number [facility] [address] [place] [address], [place] [phone] * Creatinine (12/11/2024 8:57 AM EDT) Creatinine 0.87 0.50 - 1.10 mg/dL LAB CHEMISTRY METHOD 12/11/2024 12:00 PM EDT [facility] eGFR 77 >=60 mL/min/1. 73m2 LAB CHEMISTRY METHOD 12/11/2024 12:00 PM EDT [facility] Comment:Calculation based on the Chronic Kidney Disease Epidemiology Collaboration (CKD-EPI) equation refit without adjustment for race. Blood Venous blood specimen / Unknown Venipuncture / Unknown 12/11/2024 8:57 AM EDT 12/11/2024 8:57 AM EDT us Shena Willis MD LAB BLOOD ORDERABLES Fin al Result Performing Organization Address City/[facility]/ZIP Co de Phone Number [facility] [address] [place] [address], [place] [phone] * BUN (12/11/2024 8:57 AM EDT) BUN 16 5 - 25 mg/dL LAB CHEMISTRY METHOD 12/11/2024 12:00 PM T [facility] Blood Venous blood specimen / Unknown Venipuncture / Unknown 12/11/2024 8:57 AM EDT 12/11/2024 8:57 AM EDT us Shena Willis MD LAB BLOOD ORDERABLES Fin al Result [facility] [address] [place] [address], [place] [phone] * Electrolyte panel (12/11/2024 8:57 AM EDT) Sodium 139 133 - 145 mmol/L LAB CHEMISTRY METHOD 12/11/2024 12:00 PM [facility] Potassium 3.5 3.5 - 5.5 mmol/L LAB CHEMISTRY METHOD 12/11/2024 12:00 PM [facility] Chloride 103 96 - 110 mmol/L LAB CHEMISTRY METHOD 12/11/2024 12:00 PM [facility] CO2 31 21 - 32 mmol/L LAB CHEMISTRY METHOD 12/11/2024 12:00 PM [facility] Anion Gap 5 3 - 11 LAB CHEMISTRY METHOD 12/11/2024 12:00 PM [facility] Blood Venous blood specimen / Unknown Venipuncture / Unknown 12/11/2024 8:57 AM EDT 12/11/2024 8:57 AM EDT us Shena Willis MD LAB BLOOD ORDERABLES Fin al Result [facility] [address] [place] [address], * MG Mammo Digital Screening w Michael bilat (10/24/2024 10:16 AM EDT) Anatomical Region Laterality Modality Breast Bilateral Mammography 10/24/2024 12:0 7 PM EDT Impressions 10/24/2024 12:10 PM EDT Benign. BI-RADS CATEGORY: 1 - NEGATIVE RECOMMENDATION: Screening bilateral mammogram is recommended in 1 year. Mammo Location: [facility], [address] [place] [address], [phone], . -------- FINAL REPORT -------- Dictated By: Vera Marroquin Dictated Date: 10/24/2024 12:07 ET Assigned Physician: Vera Marroquin Reviewed and Electronically Signed By: Vera Marroquin Signed Date: 10/24/2024 12:10 ET Workstation ID: [id number] Transcribed By: Self Edit Transcribed Date: 10/24/2024 12:07 ET Narrative 10/24/2024 12:10 PM EDT CLINICAL: 59 years old, Female, routine annual exam. COMPARISON: Mammograms dating back to 2020 with most recent of 10/11/2023. TECHNIQUE: Bilateral MLO and CC views were obtained digitally with 3-D mammogram (digital breast tomosynthesis). Computer-aided detection was utilized in evaluation of this exam (CAD). FINDINGS: There is no evidence of suspicious mass or architectural distortion. No worrisome calcifications are evident. There has been no significant change from prior exam(s). BREAST DENSITY: B - There are scattered areas of fibroglandular density. Procedure Note Vera Marroquin MD - 10/24/2024 CLINICAL: 59 years old, Female, routine annual exam. COMPARISON: Mammograms dating back to 2020 with most recent of10/11/2023. TECHNIQUE: Bilateral MLO and CC views were obtained digitally with 3-Dmammogram (digital breast tomosynthesis). Computer-aided detection wasutilized in evaluation of this exam (CAD). FINDINGS: There is no evidence of suspicious mass or architectural distortion. Noworrisome calcifications are evident. There has been no significantchange from prior exam(s). BREAST DENSITY: B - There are scattered areas of fibroglandular density. IMPRESSION: Benign. BI-RADS CATEGORY: 1 - NEGATIVE RECOMMENDATION: Screening bilateral mammogram is recommended in 1 year. Mammo Location: [facility], [address] [place] [address], [phone], . -------- FINAL REPORT -------- Dictated By: Vera Marroquin Dictated Date: 10/24/2024 12:07 ET Assigned Physician: Vera Marroquin Reviewed and Electronically Signed By: Vera Marroquin Signed Date: 10/24/2024 12:10 ET Workstation ID: [id number] Transcribed By: Self Edit Transcribed Date: 10/24/2024 12:07 ET us Alcides King MD IMG BI PROCEDURES Final Res ult * (ABNORMAL) Lipid panel with reflex to direct LDL (09/04/2024 10:45 AM EDT) Cholesterol 237(H) 0 - 200 mg/dL LAB CHEMISTRY METHOD 09/04/2024 1:40 PM EDT [facility] Triglycerides 107 0 - 150 mg/dL LAB CHEMISTRY METHOD 09/04/2024 1:40 PM EDT [facility] HDL 49 >=40 mg/dL LAB CHEMISTRY METHOD 09/04/2024 1:40 PM EDT [facility] LDL Calculated 167(H) 0 - 100 mg/dL LAB CHEMISTRY METHOD 09/04/2024 1:40 PM EDT [facility] VLDL Cholesterol Curt 21.4 mg/dL LAB CHEMISTRY METHOD 09/04/2024 1:40 PM EDT [facility] Non HDL Chol. (LDL+VLDL) 188(H) <145 mg/dL LAB CHEMISTRY METHOD 09/04/2024 1:40 PM EDT [facility] Chol/HDL Ratio 4.8(H) 0.0 - 4.4 LAB CHEMISTRY METHOD 09/04/2024 1:40 PM EDT [facility] Blood Venous blood specimen / Unknown Venipuncture / Unknown 09/04/2024 10:45 AM EDT 09/04/2024 11:39 AM EDT Alcides King MD LAB BLOOD ORDERABLES Final Result [facility] [address] [place] [address], * Cervical Cancer Screening: HPV (2021) [facility] Cervical Cancer Screening: HPV negative, abstracted [facility] Provider HEALTH MAINTENANCE Final Result * Colonoscopy (03/21/2019) [facility] Colonoscopy no interpretation , abstracted Anatomical Region Laterality Modality Other Historical Provider HEALTH MAINTENANCE Final Result * Hepatitis C Screening (12/28/2018) [facility] Hepatitis C Screening abstracted [facility] Provider HEALTH MAINTENANCE Final Result from Last 3 Months or Most Recently Relevant to Health Maintenance Insurance [facility] Member Subscriber Plan / Payer (Ef fective 2018-Present) Name:SABAS LEONE Relation to Subscriber:Self Name:Sabas Leone Payer ID:[id number] Group ID:[id number] Type:Not on file Address: [place] [address] [address] [id number] Care Teams Driver Guide Relationship Specialty Start Date End Date Alcides King MD [address] [place] [address] PCP - General Internal Medicine 11/11/21
== END 2025-01-23 11:38 | disposition home or self-care (01) ==
LOC: HO.HPS 11:07
PROVIDERS: Visit Provider Internal Medicine
DX: E66.9 Obesity, unspecified (principal); Z86.59 Personal history of other mental and behavioral disorders; G47.33 Obstructive sleep apnea (adult) (pediatric)
CPT/HCPCS: 99213

== ENCOUNTER → 2025-01-23 11:06 | Outpatient (BNVA) | payer OTHER, SELFPAY | PROVIDERS: Visit Provider Internal Medicine | DX: E66.9 Obesity, unspecified (principal); Z86.59 Personal history of other mental and behavioral disorders; G47.33 Obstructive sleep apnea (adult) (pediatric) | CPT/HCPCS: 99212 ==